=== PATIENT | male | born 1970 | race Caucasian/White ===

== ENCOUNTER 2017-02-23 04:22 | Emergency (ER) | payer OTHER ==
[2017-02-23 04:33] VITALS: BP 96/61
[2017-02-23] MEDS ORDERED: Metoclopramide IV* 5 MG/ML 2 ML VIAL IV ONE (04:50)
[2017-02-23] MEDS ORDERED: diPHENhydraMINE IV* 50 MG/ML 1 ml VIAL (BENADRYL) IV ONE (04:50)
[2017-02-23] MEDS ORDERED: NS 0.9% 1000 ML* 2,000 ML IV ONE (04:50)
[2017-02-23] MEDS ORDERED: Ketorolac INJ* 30 MG/ML 1 ML VIAL IV PUSH ONE (04:51)
[2017-02-23] MEDS ORDERED: Morphine INJ* 4 MG/ML 1 ML CARPUJECT IV ONE (05:57)
[2017-02-23] MEDS ORDERED: HYDROcodone/ACETAMIN 5-325 MG* 1 TAB PO ONE (06:28)
[2017-02-23] MEDS ORDERED: Ondansetron ODT TAB* 4 MG PO ONE (06:29)
--- NOTE | 2017-02-23 06:34 | ED ---
Addy Morton Benjamin, scribed for Hector Horowitz MD on 02/23/17 at 0452 . Headache - HPI Summary HPI Summary: 47yo male BIBA for CRUZ. Pt points his CRUZ primarily on the frontal area. His CRUZ is causing him N/V, and photophobia. Pt denies any fever/chills. Pt states that his CRUZ woke him up from sleep today around 0330 hour. - History Of Current Complaint Chief Complaint: EDHeadache Stated Complaint: HEADACHE Hx Obtained From: Patient Onset/Duration: Sudden Onset, Started hours ago - since 0330. Initially Headache Was: Moderate Currently Pain Is: Moderate Timing: Constant Character: Typical Headache Location of Headache: Frontal Aggravating Factor: Bright Lights Allevating Factors: Nothing Associated Signs And Symptoms: Nausea, Vomiting - Allergies/Home Medications Allergies/Adverse Reactions: Allergies Allergy/AdvReac Type Severity Reaction Status Date / Time Sumatriptan [From Imitrex] Allergy Severe Hives/Diff. Verified 02/23/17 04:25 Breathing/I tching Aspirin [ASA] Allergy Rash Verified 02/23/17 04:25 Oxycodone Allergy Unknown Verified 02/23/17 04:25 Reaction Details Prochlorperazine Allergy Rash Verified 02/23/17 04:25 [From Compazine] PMH/Surg Hx/FS Hx/Imm Hx Endocrine/Hematology History: Denies: Hx Anticoagulant Therapy, Hx Blood Disorders, Hx Blood Transfusions, Hx Bone Marrow Disease, Hx Diabetes, Hx Systemic Lupus Erythematosus, Hx Sickle Cell Disease, Hx Thyroid Disease, Hx Anemia, Hx Unexplained Bleeding, Other Endocrine/Hematological Disorders Cardiovascular History: Denies: Other Cardiovascular Problems/Disorders Respiratory History: Denies: Other Respiratory Problems/Disorders GI History: Denies: Other GI Disorders History: Denies: Other Problems/Disorders Musculoskeletal History: Reports: Hx Arthritis, Hx Back Problems, Hx Congenital Bone Abnormalities - scoliosis, Hx Orthopedic Injury, Hx Scoliosis Denies: Hx Bursitis, Hx Fibromyalgia, Hx Gout, Hx Osteoporosis, Hx Tendonitis , Other Musculoskeletal History Sensory History: Denies: Other Sensory Impairments Opthamlomology History: Denies: Other Sensory Impairments Neurological History: Reports: Hx Developmental Delay, Hx Headaches, Hx Migraine , Hx Nerve Disease Denies: Hx Dementia, Hx Seizures, Hx Spinal Cord Injury, Hx Transient Ischemic Attacks (TIA), Other Neuro Impairments/Disorders Psychiatric History: Reports: Hx Anxiety, Hx Attention Deficit Hyperactivity Disorder, Hx Depression, Hx Panic Disorder, Hx Post Traumatic Stress Disorder, Hx Inpatient Treatment, Hx Community Mental Health Tx, Hx Substance Abuse - R/O OPIATE DEPENDENCE Denies: Hx Eating Disorder, Hx Schizophrenia, Hx Bipolar Disorder, Hx Suicide Attempt, Hx of Violent Episodes Against Others, Other Psychiatric Issues /Disorders - Immunization History Date of Tetanus Vaccine: utd Date of Influenza Vaccine: utd Infectious Disease History: No Infectious Disease History: Denies: Hx Clostridium Difficile, Hx Hepatitis, Hx Human Immunodeficiency Virus (HIV), Hx Shingles, Hx Tuberculosis, Traveled Outside the [place] in Last 30 Days - Family History Known Family History: Positive: None - Social History Occupation: Unemployed Lives: Alone Alcohol Use: None Substance Use Type: Reports: None Substance Use Comment - Amount & Last Used: MORPHINE PO Smoking Status (MU): Heavy Every Day Tobacco Smoker Type: Cigarettes Amount Used/How Often: PPD Length of Time of Smoking/Using Tobacco: 10YRS Have You Smoked in the Last Year: Yes Review of Systems Constitutional: Negative Negative: Fever, Chills Positive: Photophobia ENT: Negative Cardiovascular: Negative Respiratory: Negative Positive: Vomiting, Nausea Genitourinary: Negative Positive: no symptoms reported Musculoskeletal: Negative Skin: Negative Positive: Headache Psychological: Normal All Other Systems Reviewed And Are Negative: Yes Physical Exam - Summary Physical Exam Summary: The patient is well-nourished in mild distress. Pt is actively vomiting. Photophobic. The skin is warm and dry and skin color reflects adequate perfusion. HEENT: The head is normocephalic and atraumatic. Couldn't evaluate pt's pupils due to pt being photophobic. The conjunctivae are clear and without drainage. Nares are patent and without drainage. Mouth reveals dry mucous membranes and the throat is without erythema and exudate. The external ears are intact. The ear canals are patent and without drainage. The tympanic membranes are intact. Neck is supple with full range of motion and non-tender. There are no carotid bruits. There is no neck vein distension. Respiratory: Chest is non-tender. Lungs are clear to auscultation and breath sounds are symmetrical and equal. Cardiovascular: Hear is regular rate and rhythm. There is no murmur or rub auscultated. There is no peripheral edema and pulses are symmetrical and equal. Abdomen: The abdomen is soft and non-tender. There are normal bowel sounds heard in all four quadrants and there is no organomegaly palpated. Musculoskeletal: There is no back pain noted. Extremities are non-tender with full range of motion. There is good capillary refill. There is no peripheral edema or calf tenderness elicited. Neurological: Patient is alert and oriented to person, place and time. The patient has symmetrical motor strength in all four extremities. Cranial nerves are grossly intact. Deep tendon reflexes are symmetrical and equal in all four extremities. No focal motor weakness in legs. Psychiatric: The patient has an appropriate affect and does not exhibit any anxiety or depression. Mild diters photo activeing V. couldnt eval pupils. No rhin dry omm. No focal motor weakness in legs. 3sec. Triage Information Reviewed: Yes Vital Signs On Initial Exam: Initial Vitals Temp Pulse Resp BP Pulse Ox 97.2 F 79 18 96/61 99 02/23/17 04:23 02/23/17 04:23 02/23/17 04:23 02/23/17 04:23 02/23/17 04:23 Vital Signs Reviewed: Yes - [place] Coma Scale Coma Scale Total: 15 Diagnostics - Vital Signs Vital Signs Temp Pulse Resp BP Pulse Ox 02/23/17 04:23 97.2 F 79 18 96/61 99 - Laboratory Lab Statement: Any lab studies that have been ordered have been reviewed, and results considered in the medical decision making process. Re-Evaluation - Re-Evaluation First Eval Re-Evaluation Time: 06:27 Change: Improved Comment: pt states that his pain is better now. Headache Course/Dx - Course Course Of Treatment: Reviewed pt's medication list and allergies. Blood pressure noted. - Diagnoses Differential Diagnosis/HQI/PQRI: Other - substance abuse Provider Diagnoses: Migraine Discharge - Discharge Plan Condition: Stable Disposition: HOME Patient Education Materials: Migraine Headache (ED) Referrals: Abdiaziz Silver MD [Primary Care Provider] - The documentation as recorded by the Addy victoria Benjamin accurately reflects the service I personally performed and the decisions made by me, Hector Horowitz MD.
== END 2017-02-23 06:55 | disposition home or self-care (01) ==
LOC: ED 04:22
DX: G43.909 Migraine, unspecified, not intractable, without status migrainosus (principal); R11.2 Nausea with vomiting, unspecified; Z88.6 Allergy status to analgesic agent; Z88.5 Allergy status to narcotic agent; Z88.8 Allergy status to other drugs, medicaments and biological substances; F17.210 Nicotine dependence, cigarettes, uncomplicated
CPT/HCPCS: 96361; 96374; 96375; 99283; A9270-GY; J1200; J1885; J2270; J2765

== ENCOUNTER 2018-06-04 09:03 | Observation (INO) | payer OTHER ==
[2018-06-04] MEDS ORDERED: Ondansetron INJ* 2 MG/ML VIAL IV ONE ×2 (09:13→12:32)
[2018-06-04] MEDS ORDERED: Pantoprazole IV* 40 MG IV ONE (09:13)
[2018-06-04] MEDS ORDERED: NS 0.9% 1000 ML* 1,000 ML IV ONE ×2 (09:13→11:28)
[2018-06-04 09:35] LABS: ABS Basophils 0.1 10^3/ul (0-0.2); ABS Eosinophils 0 10^3/ul (0-0.6); ABS Lymphocytes 1.9 10^3/ul (1.0-4.8); ABS Monocytes 0.9 10^3/ul (0-0.8); ABS Neutrophils 11.3 10^3/ul (1.5-7.7); ABS Nucleated RBC 0 10^3/ul; Eosinophil % 0 %; Hematocrit 45 % (42-52); Hemoglobin 14.7 g/dl (14.0-18.0); Lymphocyte % 13.5 %; Mean Corpuscular HGB Conc 33 g/dl (31-36); Mean Corpuscular Hemoglobin 32 pg (27-31); Mean Corpuscular Volume 97 fL (80-94); Mean Platelet Volume 6.7 fL (7.4-10.4); Nucleated Red Blood Cells % 0.1; Platelet Count 489 10^3/ul (150-450); Red Blood Count 4.67 10^6/ul (4.00-5.40); Red Cell Distribution Width 17 % (10.5-15); White Blood Count 14.2 10^3/ul (3.5-10.8)
[2018-06-04 09:41] LABS: INR 0.97 (0.77-1.02)
[2018-06-04 09:51] LABS: ALT 11 U/L (7-52); AST 11 U/L (13-39); Albumin 4.6 g/dL (3.2-5.2); Albumin/Globulin Ratio 1.8 (1-3); Alkaline Phosphatase 92 U/L (34-104); Amylase 33 U/L (29-103); BUN/Creatinine Ratio 22.8 (8-20); Blood Urea Nitrogen 23 mg/dL (6-24); C Reactive Protein 1.15 mg/L (<8.01); Calcium 9.6 mg/dL (8.6-10.3); Chloride 105 mmol/L (101-111); Creatine Kinase 53 U/L (10-223); EGFR Non-African American 79.5 (>60); Globulin 2.6 g/dL (2-4); Glucose 96 mg/dL (70-100); Potassium 3.7 mmol/L (3.5-5.0); Sodium 137 mmol/L (135-145); Total Protein 7.2 g/dL (6.4-8.9)
[2018-06-04 09:55] LABS: Anion Gap 21 mmol/L (2-11); CO2 Carbon Dioxide 11 mmol/L (22-32)
[2018-06-04 10:07] LABS: Alcohol < 10 mg/dL (<10)
[2018-06-04] MEDS ORDERED: PROCHLORPERAZINE INJ 5 MG/ML 2 ML VIAL IV ONE (10:40)
[2018-06-04 11:11] LABS: Urine Appearance Clear; Urine Bacteria Absent (Absent); Urine Bilirubin Negative (Negative); Urine Blood Negative (Negative); Urine Color Yellow; Urine Glucose Negative (Negative); Urine Ketones 2+ (Negative); Urine Nitrite Negative (Negative); Urine Protein 1+(30 mg/dL) (Negative); Urine Red Blood Cell Trace(0-2/hpf) (Absent); Urine Specific Gravity 1.038 (1.010-1.030); Urine Urobilinogen Negative (Negative); Urine White Blood Cell Trace(0-5/hpf) (Absent)
--- NOTE | 2018-06-04 11:24 | ED ---
Nausea/Vomiting/Diarrhea HPI - HPI Summary HPI Summary: Patient is a 48-year-old male with a history of chronic pain since to the ED with a 3 day history of worsening nausea, vomiting without diarrhea or constipation. He states the last by mouth intake was 4 days ago, however he has been able to sip water. He states he feels he ate something different 3-4 days ago which caused him to have food poisoning. He has never had anything like this before. He denies any food allergies. Denies any abdominal pain. Denies any urinary symptoms or back pain. States he is otherwise healthy. Take Topiramate for migraines. Denies other medications. Denies any drug or alcohol use. Denies any diabetic history. Family history of diabetes. Heavy smoker. - History of Current Complaint Chief Complaint: EDNauseaVomitDiarrh Stated Complaint: VOMITING Time Seen by Provider: 06/04/18 09:16 Hx Obtained From: Patient Onset/Duration: Sudden Onset Timing: Constant Severity Initially: Moderate Severity Currently: Moderate Pain Intensity: 0 Pain Scale Used: 0-10 Numeric Aggravating Factor(s): Nothing Alleviating Factor(s): Nothing Diarrhea Presence: No - Risk Factors Influenza Risk Factors: Negative - Allergies/Home Medications Allergies/Adverse Reactions: Allergies Allergy/AdvReac Type Severity Reaction Status Date / Time aspirin Allergy Rash Verified 06/04/18 09:14 oxycodone Allergy Unknown Verified 06/04/18 09:14 Reaction Details prochlorperazine Allergy Rash Verified 06/04/18 09:14 sumatriptan Allergy Hives/Diff. Verified 06/04/18 09:14 Breathing/I tching PMH/Surg Hx/FS Hx/Imm Hx Previously Healthy: Yes Endocrine/Hematology History: Denies: Hx Anticoagulant Therapy, Hx Blood Disorders, Hx Blood Transfusions, Hx Bone Marrow Disease, Hx Diabetes, Hx Systemic Lupus Erythematosus, Hx Sickle Cell Disease, Hx Thyroid Disease, Hx Anemia, Hx Unexplained Bleeding, Other Endocrine/Hematological Disorders Cardiovascular History: Denies: Other Cardiovascular Problems/Disorders Respiratory History: Denies: Other Respiratory Problems/Disorders GI History: Denies: Other GI Disorders History: Denies: Other Problems/Disorders Musculoskeletal History: Reports: Hx Arthritis, Hx Back Problems, Hx Congenital Bone Abnormalities - scoliosis, Hx Orthopedic Injury, Hx Scoliosis Denies: Hx Bursitis, Hx Fibromyalgia, Hx Gout, Hx Osteoporosis, Hx Tendonitis , Other Musculoskeletal History Sensory History: Denies: Other Sensory Impairments Opthamlomology History: Denies: Other Sensory Impairments Neurological History: Reports: Hx Developmental Delay, Hx Headaches, Hx Migraine , Hx Nerve Disease Denies: Hx Dementia, Hx Seizures, Hx Spinal Cord Injury, Hx Transient Ischemic Attacks (TIA), Other Neuro Impairments/Disorders Psychiatric History: Reports: Hx Anxiety, Hx Attention Deficit Hyperactivity Disorder, Hx Depression, Hx Panic Disorder, Hx Post Traumatic Stress Disorder, Hx Inpatient Treatment, Hx Community Mental Health Tx, Hx Substance Abuse - R/O OPIATE DEPENDENCE Denies: Hx Eating Disorder, Hx Schizophrenia, Hx Bipolar Disorder, Hx Suicide Attempt, Hx of Violent Episodes Against Others, Other Psychiatric Issues /Disorders - Immunization History Date of Tetanus Vaccine: utd Date of Influenza Vaccine: utd Hx Pertussis Vaccination: No Immunizations Up to Date: Yes Infectious Disease History: No Infectious Disease History: Denies: Hx Clostridium Difficile, Hx Hepatitis, Hx Human Immunodeficiency Virus (HIV), Hx Shingles, Hx Tuberculosis, Traveled Outside the [place] in Last 30 Days - Family History Known Family History: Positive: None - Social History Occupation: Unemployed Lives: Alone Alcohol Use: None Substance Use Type: Reports: None Substance Use Comment - Amount & Last Used: MORPHINE PO Hx Tobacco Use: Yes Smoking Status (MU): Light Every Day Tobacco Smoker Type: Cigarettes Amount Used/How Often: PPD Length of Time of Smoking/Using Tobacco: 10YRS Have You Smoked in the Last Year: Yes Review of Systems Constitutional: Negative Negative: Fever, Chills, Fatigue, Skin Diaphoresis Negative: Sore Throat, Ear Ache, Nasal Discharge Negative: Palpitations, Chest Pain Negative: Shortness Of Breath Positive: Vomiting, Nausea. Negative: Abdominal Pain Genitourinary: Negative Positive: no symptoms reported, see HPI Positive: Anxious All Other Systems Reviewed And Are Negative: Yes Physical Exam Triage Information Reviewed: Yes Vital Signs On Initial Exam: Initial Vitals Temp Pulse Resp BP Pulse Ox 97.8 F 122 20 142/93 98 06/04/18 09:07 06/04/18 09:07 06/04/18 09:07 06/04/18 09:07 06/04/18 09:07 Vital Signs Reviewed: Yes Appearance: Positive: Well-Appearing, Well-Nourished Skin: Positive: Warm, Skin Color Reflects Adequate Perfusion Head/Face: Positive: Normal Head/Face Inspection Eyes: Positive: EOMI, ROSALIO, Conjunctiva Clear Neck: Positive: Supple, No Lymphadenopathy Respiratory/Lung Sounds: Positive: Clear to Auscultation, Breath Sounds Present Cardiovascular: Positive: RRR, Pulses are Symmetrical in both Upper and Lower Extremities Abdomen Description: Positive: Nontender, Soft Neurological: Positive: Sensory/Motor Intact, Alert, Oriented to Person Place, Time, Speech Normal Psychiatric: Positive: Normal AVPU Assessment: Alert Diagnostics - Vital Signs Vital Signs Temp Pulse Resp BP Pulse Ox 06/04/18 10:39 121 113/82 98 06/04/18 10:09 108 134/88 99 06/04/18 10:00 114 99 06/04/18 09:39 110 139/91 98 06/04/18 09:10 122 142/93 98 06/04/18 09:09 129 124/105 98 06/04/18 09:08 119 98 06/04/18 09:07 97.8 F 122 20 142/93 98 - Laboratory Lab Results: Lab Results 06/04/18 06/04/18 06/04/18 Range/Units 09:13 09:18 09:18 WBC 14.2 H (3.5-10.8) 10^3/ul RBC 4.67 (4.00-5.40) 10^6/ul Hgb 14.7 (14.0-18.0) g/dl Hct 45 (42-52) % MCV 97 H (80-94) fL MCH 32 H (27-31) pg MCHC 33 (31-36) g/dl RDW 17 H (10.5-15) % Plt Count 489 H (150-450) 10^3/ul MPV 6.7 L (7.4-10.4) fL Neut % (Auto) 79.9 % Lymph % (Auto) 13.5 % [place] % (Auto) 6.2 % Eos % (Auto) 0 % Baso % (Auto) 0.4 % Absolute Neuts (auto) 11.3 H (1.5-7.7) 10^3/ul Absolute Lymphs (auto) 1.9 (1.0-4.8) 10^3/ul Absolute Monos (auto) 0.9 H (0-0.8) 10^3/ul Absolute Eos (auto) 0 (0-0.6) 10^3/ul Absolute Basos (auto) 0.1 (0-0.2) 10^3/ul Absolute Nucleated RBC 0 10^3/ul Nucleated RBC % 0.1 INR (Anticoag Therapy) (0.77-1.02) Sodium 137 (135-145) mmol/L Potassium 3.7 (3.5-5.0) mmol/L Chloride 105 (101-111) mmol/L Carbon Dioxide 11 L* (22-32) mmol/L Anion Gap 21 H (2-11) mmol/L BUN 23 (6-24) mg/dL Creatinine 1.01 (0.67-1.17) mg/dL Est GFR ( Amer) 96.2 (>60) Est GFR (Non-Af Amer) 79.5 (>60) BUN/Creatinine Ratio 22.8 H (8-20) Glucose 96 (70-100) mg/dL Lactic Acid (0.5-2.0) mmol/L Calcium 9.6 (8.6-10.3) mg/dL Magnesium 2.0 (1.9-2.7) mg/dL Total Bilirubin 0.40 (0.2-1.0) mg/dL AST 11 L (13-39) U/L ALT 11 (7-52) U/L Alkaline Phosphatase 92 (34-104) U/L Ammonia (16-53) mcmol/L Total Creatine Kinase 53 (10-223) U/L C-Reactive Protein 1.15 (<8.01) mg/L Total Protein 7.2 (6.4-8.9) g/dL Albumin 4.6 (3.2-5.2) g/dL Globulin 2.6 (2-4) g/dL Albumin/Globulin Ratio 1.8 (1-3) Amylase 33 (29-103) U/L Lipase 30 (11.0-82.0) U/L Urine Color Yellow Urine Appearance Clear Urine pH 6.0 (5-9) Ur Specific [place] 1.038 H (1.010-1.030) Urine Protein 1+(30 mg/dl) A (Negative) Urine Ketones 2+ A (Negative) Urine Blood Negative (Negative) Urine Nitrate Negative (Negative) Urine Bilirubin Negative (Negative) Urine Urobilinogen Negative (Negative) Ur Leukocyte Esterase Negative (Negative) Urine WBC (Auto) Trace(0-5/hpf) (Absent) Urine RBC (Auto) Trace(0-2/hpf) (Absent) Ur Squamous Epith Cells Present A (Absent) Urine Bacteria Absent (Absent) Hyaline Casts Present A (Absent) Urine Glucose Negative (Negative) Serum Alcohol < 10 (<10) mg/dL 06/04/18 06/04/18 06/04/18 Range/Units 09:18 09:18 09:18 WBC (3.5-10.8) 10^3/ul RBC (4.00-5.40) 10^6/ul Hgb (14.0-18.0) g/dl Hct (42-52) % MCV (80-94) fL MCH (27-31) pg MCHC (31-36) g/dl RDW (10.5-15) % Plt Count (150-450) 10^3/ul MPV (7.4-10.4) fL Neut % (Auto) % Lymph % (Auto) % [place] % (Auto) % Eos % (Auto) % Baso % (Auto) % Absolute Neuts (auto) (1.5-7.7) 10^3/ul Absolute Lymphs (auto) (1.0-4.8) 10^3/ul Absolute Monos (auto) (0-0.8) 10^3/ul Absolute Eos (auto) (0-0.6) 10^3/ul Absolute Basos (auto) (0-0.2) 10^3/ul Absolute Nucleated RBC 10^3/ul Nucleated RBC % INR (Anticoag Therapy) 0.97 (0.77-1.02) Sodium (135-145) mmol/L Potassium (3.5-5.0) mmol/L Chloride (101-111) mmol/L Carbon Dioxide (22-32) mmol/L Anion Gap (2-11) mmol/L BUN (6-24) mg/dL Creatinine (0.67-1.17) mg/dL Est GFR ( Amer) (>60) Est GFR (Non-Af Amer) (>60) BUN/Creatinine Ratio (8-20) Glucose (70-100) mg/dL Lactic Acid 1.5 (0.5-2.0) mmol/L Calcium (8.6-10.3) mg/dL Magnesium (1.9-2.7) mg/dL Total Bilirubin (0.2-1.0) mg/dL AST (13-39) U/L ALT (7-52) U/L Alkaline Phosphatase (34-104) U/L Ammonia 50 (16-53) mcmol/L Total Creatine Kinase (10-223) U/L C-Reactive Protein (<8.01) mg/L Total Protein (6.4-8.9) g/dL Albumin (3.2-5.2) g/dL Globulin (2-4) g/dL Albumin/Globulin Ratio (1-3) Amylase (29-103) U/L Lipase (11.0-82.0) U/L Urine Color Urine Appearance Urine pH (5-9) Ur Specific [place] (1.010-1.030) Urine Protein (Negative) Urine Ketones (Negative) Urine Blood (Negative) Urine Nitrate (Negative) Urine Bilirubin (Negative) Urine Urobilinogen (Negative) Ur Leukocyte Esterase (Negative) Urine WBC (Auto) (Absent) Urine RBC (Auto) (Absent) Ur Squamous Epith Cells (Absent) Urine Bacteria (Absent) Hyaline Casts (Absent) Urine Glucose (Negative) Serum Alcohol (<10) mg/dL Result Diagrams: 06/04/18 09:18 06/04/18 09:18 Lab Statement: Any lab studies that have been ordered have been reviewed, and results considered in the medical decision making process. Naus/Vom/Diarrhea Course/Dx - Course Course Of Treatment: On arrival, patient is given Zofran without good relief. Subsequently given Compazine. Fluids given and labs obtained. CO2 level low at 11. Appears to be in metabolic acidosis. ABG ordered which confirms.PH 7.25 , PCO2 20, PO2 117, bicarbonate 12. He is given 3 L of fluids total in the ED. Will repeat blood gas. Recommend hospitalization. Discussed this with the patient who is resistant to this idea, however I have explained he could continue to go into worsening acidosis. He is agreeable to stay. Discussed with Dr. Saldana at 12:55pm who agrees to see patient in the ED for possible admission. - Differential Dx/Diagnosis Provider Diagnosis: Metabolic acidosis, Nausea & vomiting - Physician Notification/Consults Discussed Case/Management/Disposition Of Patient With: Nessa Saldana - 12: 55pm Instructed by Provider To: Admit As Inpatient Discharge - Sign-Out/Discharge Documenting (check all that apply): Patient Departure - Discharge Plan Condition: Good Disposition: ADMITTED TO [facility] Referrals: Abdiaziz Silver MD [Primary Care Provider] - - Billing Disposition and Condition Condition: GOOD Disposition: Admitted to [facility]
[2018-06-04] MEDS: NS 0.9% 1000 ML* 2,000 ML IV ONE ×2 (12:48→13:35)
[2018-06-04] MEDS ORDERED: Ketorolac INJ* 30 MG/ML 1 ML VIAL IV PUSH ONE (13:17)
[2018-06-04] MEDS ORDERED: Ondansetron INJ* 2 MG/ML VIAL IV PRN (13:59)
[2018-06-04 14:01] LABS: Barbiturates Urine Screen None Detected (None Detect); Benzodiazepine Urine Screen None Detected (None Detect); Urine Cannabinoids Screen None Detected (None Detect)
[2018-06-04] MEDS ORDERED: Iohexol 300* (CONTRAST) 10 ML SDV IV ONE (14:25)
[2018-06-04 14:55] LABS: Potassium 4.7 mmol/L (3.5-5.0)
[2018-06-04] MEDS ORDERED: Lactated Ringers 1000 ML Bag* 1,000 ML IV SCH ×2 (15:00→23:00)
[2018-06-04] MEDS ORDERED: Metoclopramide IV* 5 MG/ML 2 ML VIAL IV ONE (15:15)
[2018-06-04] MEDS ORDERED: Metoclopramide IV* 5 MG/ML 2 ML VIAL ONE (15:17)
[2018-06-04] MEDS: Acetaminophen TAB* 325 MG PO PRN ×2 (17:53→23:09)
--- NOTE | 2018-06-04 19:28 | HP ---
CC: Dr. Silver * HISTORY AND PHYSICAL: DATE OF ADMISSION: 06/04/18 PROVIDER: Amberly Caba NP PRIMARY CARE PROVIDER: Dr. Silver. ATTENDING PHYSICIAN WHILE IN THE HOSPITAL: Dr. Nessa Saldana * (dictated by Amberly Caba NP). CHIEF COMPLAINT: Vomiting. HISTORY OF PRESENT ILLNESS: Mr. Blanchard is a 48-year-old male with a history of mild mental retardation, anxiety, history of suicidal attempts in the past, chronic back pain and migraines, who presented to the emergency room with complaints of intractable vomiting since Sunday. The patient states that he ate a sandwich from the [facility] on Sunday, and approximately 30 minutes after eating the sandwich he started vomiting. Reports that he has been unable to keep anything down including broth or clear liquids due to the vomiting. The patient reports that vomited several times a day. He denies any coffee-ground emesis or bright red blood in his vomit. He does report there is some mild streaking of blood with the vomit. He denies any fever or chills. Denies chest pain or edema. Denies any cough, hemoptysis, or shortness of breath. He does report nausea and vomiting and did experience some abdominal pain with the vomiting. He does complain of right lower quad abdominal pain with palpation. He denies any hematuria or dysuria. Denies any focal weakness or sensory loss. Denies any visual complaints, dysphagia. He does complain of chronic back pain. Denies any rashes, lesions, psychosis, or anxiety. Due to intractable vomiting and laboratory derangement, we were asked to see and evaluate him for admission. PAST MEDICAL HISTORY: Significant for: 1. Chronic back pain. 2. Mild mental retardation. 3. History of suicidal attempts. 4. Anxiety/depression. 5. Scoliosis. PAST SURGICAL HISTORY: None. HOME MEDICATIONS: 1. Topiramate 50 mg p.o. b.i.d. 2. Pain Relief PM 1 to 2 tablets at night for back pain. FAMILY HISTORY: Unknown any history of coronary artery disease. Does report father with a history of diabetes. Mother of unknown type of cancer. SOCIAL HISTORY: The patient smokes 3 to 4 cigarettes per day. Denies any alcohol or drug use. He lives alone. Surrogate decision maker in the event he is unable to make his own decisions is Carlo Palafox. Her phone number is [phone]. He wishes to be a DNR. REVIEW OF SYSTEMS: There has been no documented fever. Denies any chest pain or edema. Denies any cough, hemoptysis, or shortness of breath. He does report nausea and vomiting. Denies any diarrhea. He does report some right lower quad abdominal pain with palpation and mild abdominal pain with vomiting. No gross hematuria or dysuria, focal weakness or sensory loss. Denies any visual complaints, dysphagia. He does report chronic back pain. Denies any rashes, lesions, psychosis, or anxiety. He denies any suicidal or homicidal ideation. PHYSICAL EXAMINATION GENERAL: Mr. Blanchard is a 48-year-old male, who is pale-appearing, resting on the stretcher in the emergency room, appears to be in mild distress due to low back pain. VITAL SIGNS: Blood pressure 123/85, heart rate 113, respiratory rate 16, O2 saturation 98%, temperature was 99.1. HEENT: Head is atraumatic, normocephalic. Eyes: EOMs are intact. Sclerae anicteric and not pale. Oral mucosa is dry. The patient with poor dentition. NECK: Supple. LUNGS: Clear to auscultation bilaterally. No wheeze, rales, or rhonchi. CARDIAC: S1, S2. Regular rate and rhythm. No murmurs, rubs, or gallops. ABDOMEN: Soft. Tenderness with palpation to the right lower quadrant. Bowel sounds are present x4. EXTREMITIES: Pulses are +2 bilaterally. He is able to move all 4 extremities with 5/5 strength. NEUROLOGIC: He is awake, alert, and oriented x3. Speech is clear. Thought process is intact. No gross neuro deficits. SKIN: Intact. DIAGNOSTIC STUDIES/LAB DATA: WBCs are 14.2, RBCs 4.67, hemoglobin 14.7, hematocrit was 45, platelet count was 489. INR was 0.97. ABG: pH was 7.25, pCO2 was 20, pO2 117, HCO3 was 12, base excess was negative 16.3. Sodium 137, potassium 3.7, chloride 105, carbon dioxide was 11, anion gap was 21, BUN was 23 , creatinine 1.01, glucose was 96. Serum osmolality is 298. Lactic acid was 1.5, calcium 9.6. ASTs were 11, ALTs were 11, alkaline phosphatase was 92. Ammonia was 50. Total CK was 53. C-reactive protein was 1.15. Lipase was 30, amylase 33. Urine was yellow, clear, pH was 6, specific gravity 1.038, urine protein was 1+, ketones were 2+. Urine blood, nitrites, bilirubin, urobilinogen , leukocyte esterase were all negative. Urine wbc's were trace, rbc's were trace, urine squamous epithelial cells were present, urine bacteria was absent, hyaline casts were present, urine glucose was negative. Urine opiates, barbiturates, amphetamines, benzodiazepines, cocaine, cannabis and phencyclidine were all negative. Serum alcohol was also negative. CT abdomen and pelvis. Radiologist's impression: Cholelithiasis without pericholecystic inflammatory changes to suggest acute cholecystitis. ASSESSMENT AND PLAN: Mr. Blanchard is a 48-year-old male with a past medical history significant for chronic back pain, mild mental retardation, anxiety, prior history of suicidal attempts and migraines, who presented to the emergency room with intractable vomiting since Sunday. He was found to have metabolic acidosis on his lab work. We were asked to see and admit the patient. He will be admitted inpatient for: 1. Intractable vomiting. The patient has had vomiting since Sunday. He does have right lower quad abdominal pain. I will get a CT of the abdomen and pelvis. We will continue him on IV fluids for rehydration. I suspect that he has some mild dehydration due to the excessive vomiting. The patient does report that he ate at [facility] and approximately 30 minutes after eating a sandwich at the [facility], he started with vomiting. He denies any recent sick contacts. He denies any other symptoms. He does report some streaking of blood in the vomit. 2. Metabolic acidosis. It is unclear the cause of his metabolic acidosis at this time. He does have right lower quad abdominal pain. I will get a CT of the abdomen and pelvis to rule out any abdominal pathology for his metabolic acidosis. His lactic acid at this time is negative. He does have a white count of 14.2. We will continue to monitor his electrolytes. I will repeat electrolytes at [address] him on LR at 125 per hour and give Zofran as needed for nausea. 3. Right lower quad abdominal pain. I will do a CT of the abdomen and pelvis to rule out appendicitis or any other acute abdominal pathology as to the cause of his vomiting and right lower quad abdominal pain. 4. Chronic back pain. The patient takes [id number] Pain Relief PM. Continue him on Tylenol as needed for pain. 5. Migraines. The patient takes topiramate at home 50 mg p.o. b.i.d. I will hold this until he is able to take p.o. fluids. 6. FEN: He will be placed on a clear liquid diet and advance as tolerated. 7. Code status: The patient reports he would like to be a DNR. 8. DVT prophylaxis: I will encourage ambulation. 9. Disposition: The patient will be placed on observation. TIME SPENT: Time spent on this admission was 60 minutes, greater than half that time was spent [id number] with the patient obtaining my history and physical, the other half of the time was spent going over my plan of care and implementing my plan of care. I have discussed this with my attending Dr. Nessa Saldana, and she is in agreement with my plan. AMBERLY CABA, COMMERCIAL ENGINEER [id number]/[facility] #: [id number] TEETEE
[2018-06-04] MEDS ORDERED: Melatonin 3 MG TAB PO PRN (19:54)
[2018-06-04 20:50] LABS: Potassium 3.6 mmol/L (3.5-5.0)
[2018-06-04] MEDS ORDERED: NS 0.9% 1000 ML* 1,000 ML IV SCH (22:45)
[2018-06-04] MEDS ORDERED: diPHENhydraMINE PO* 25 MG PO PRN (22:57)
[2018-06-05] MEDS ORDERED: Ketorolac INJ* 15 MG/ML 1 ML VIAL IV PUSH ONE (00:54)
[2018-06-05] MEDS: Acetaminophen TAB* 325 MG PO PRN (04:59)
[2018-06-05] MEDS ORDERED: Ketorolac INJ* 15 MG/ML 1 ML VIAL IV PUSH PRN (06:00)
[2018-06-05 06:01] LABS: ABS Basophils 0.1 10^3/ul (0-0.2); ABS Eosinophils 0.1 10^3/ul (0-0.6); ABS Lymphocytes 2.6 10^3/ul (1.0-4.8); ABS Monocytes 1.3 10^3/ul (0-0.8); ABS Neutrophils 8.8 10^3/ul (1.5-7.7); ABS Nucleated RBC 0 10^3/ul; Eosinophil % 0.7 %; Hematocrit 34 % (42-52); Lymphocyte % 20.5 %; Mean Corpuscular HGB Conc 32 g/dl (31-36); Mean Corpuscular Hemoglobin 31 pg (27-31); Mean Corpuscular Volume 97 fL (80-94); Mean Platelet Volume 6.6 fL (7.4-10.4); Nucleated Red Blood Cells % 0; Platelet Count 368 10^3/ul (150-450); Red Blood Count 3.56 10^6/ul (4.00-5.40); Red Cell Distribution Width 16 % (10.5-15); White Blood Count 12.9 10^3/ul (3.5-10.8)
[2018-06-05 07:26] LABS: Calcium 8.5 mg/dL (8.6-10.3); Potassium 3.7 mmol/L (3.5-5.0)
[2018-06-05 07:32] LABS: BUN/Creatinine Ratio 16.3 (8-20); EGFR Non-African American 183.2 (>60); HDL Cholesterol 29.9 mg/dL
[2018-06-05 07:37] VITALS: BP 110/73
[2018-06-05] MEDS ORDERED: Topiramate TAB(*) 25 MG PO SCH (09:00)
--- NOTE | 2018-06-05 11:35 | DS ---
CC: Dr. Silver * DISCHARGE SUMMARY: DATE OF ADMISSION: 06/04/18 DATE OF DISCHARGE: 06/05/18 HOSPITAL COURSE: This 48-year-old man was admitted because of vomiting. He said about 30 minutes after buying a sandwich which started on 05/31/18, he started having vomiting. He continued to have vomiting several times a day until the morning of admission. After being admitted, he no longer had vomiting. He said he had 1 or 2 bowel movements per day. He did not have an abdominal pain. The rest of the history is detailed in the admission note. CT scan showed cholelithiasis without pericholecystic fluid or gallbladder wall thickening. The patient was treated symptomatically and given intravenous fluids. He received almost 7 L of intravenous fluids. His laboratory results improved significantly. His white blood count fell from 14.2 to 12.9, blood gas showed metabolic acidosis; however, by the morning of discharge, it improved significantly with anion gap falling from 21 to 15, CO2 faith from 11 to 14, potassium was 3.7. The patient's creatinine fell from 1.01 to 0.49. The patient said he felt quite well. He was hungry. He was drinking apple juice and water without any difficulty. He had no emesis for over 24 hours before discharge. He actually told the nurse he wanted to sign out against medical advice; however, I think after he eats a meal and drinks a little more fluid, he would be appropriate for discharge. FINAL DIAGNOSIS: Gastroenteritis versus staphylococcal food poisoning. DISCHARGE DIAGNOSES: 1. Mood disorder. 2. Tobacco use disorder. DISCHARGE MEDICATIONS: 1. Topiramate 50 mg b.i.d. CONDITION ON DISCHARGE: Improved. DISPOSITION: Discharged home. [id number]/[facility] #: [id number] [facility]
== END 2018-06-05 10:50 | disposition home or self-care (01) ==
LOC: ED 09:03 → INTOOBSV 13:59 → MED 13:59
PROVIDERS: ADMIT Hospitalist; ATTEND Internal Medicine
DX: K52.9 Noninfective gastroenteritis and colitis, unspecified (principal); F39 Unspecified mood [affective] disorder; F17.210 Nicotine dependence, cigarettes, uncomplicated; M54.9 Dorsalgia, unspecified; F70 Mild intellectual disabilities; F41.8 Other specified anxiety disorders; M41.9 Scoliosis, unspecified; R11.2 Nausea with vomiting, unspecified
CPT/HCPCS: 36415; 74177; 80048; 80051; 80053; 80061; 80307; 80320; 81003; 81015; 82140; 82150; 82550; 82803; 83605; 83690; 83735; 83930; 85025; 85610; 86140; 87040; 87086; 90471; 90686; 93005; 96361; 96374; 96375; 96376; 99284; A9270-GY; G0008; G0378; G0480; J0780; J1885; J2405; J2765; Q9967

== ENCOUNTER 2023-08-07 06:36 | Inpatient (IN) ==
[2023-08-07] MEDS: Metoclopramide 5 MG/ML VIAL (10 mg) IV ONE (07:06)
[2023-08-07] MEDS ORDERED: Dextrose 50% Syringe 50 ml 25 GM/50 ML SYRINGE ONE (07:08)
[2023-08-07] MEDS: Lactated Ringers 1000 ml BAG 1,000 ML IV ONE ×4 (07:10→16:09)
[2023-08-07] MEDS: Dextrose 50% Syringe 50 ml 25 GM/50 ML SYRINGE IV PUSH ONE (07:11)
[2023-08-07] MEDS: Glucose ORAL 15 GM TUBE PO ONE (07:18)
[2023-08-07 07:52] LABS: Hematocrit 38.3 % (38-53); Mean Corpuscular Hemoglobin 31.6 pg (27-33); Mean Corpuscular Hgb Conc 31.4 g/dL (31-36); Mean Corpuscular Volume 100.6 fL (80-97); Mean Platelet Volume 6.3 fL (7.5-11.2); Platelet Count 429 10^3/uL (150-450); Red Cell Distribution Width 17.3 % (12-17); White Blood Count 15.8 10^3/uL (3.6-10.2)
[2023-08-07 08:20] LABS: ABS Monocytes 0.5 10^3/uL (0.0-1.1); ABS Neutrophils 14.2 10^3/uL (1.5-7.6); ABS Nucleated RBC 0.02 10^3/ul; Anisocytosis 1+; Lymphocyte % 6.2 %; Macrocytosis 1+; Nucleated Red Blood Cells % 0.1 %/100WBC (0.0-0.8)
[2023-08-07 08:40] LABS: Albumin 3.9 g/dL (3.2-5.2); Albumin/Globulin Ratio 1.9 (1-3); C Reactive Protein 23.7 mg/L (<8.01); Calcium 8.2 mg/dL (8.6-10.3); Creatinine, Serum 0.76 mg/dL (0.67-1.17); Globulin 2.1 g/dL (2-4); Potassium 5.1 mmol/L (3.5-5.0); Total Bilirubin 0.3 mg/dL (0.2-1.0); eGFR CKD-EPI 108.8 (>60)
[2023-08-07 09:24] LABS: Venous Bicarbonate HCO3 9.8 mmol/L (24-28)
[2023-08-07] MEDS: Morphine 4 MG/ML VIAL (1 ml) IV ONE ×2 (10:27→14:07)
[2023-08-07 11:08] LABS: Urine Appearance Clear; Urine Bilirubin Negative (Negative); Urine Blood Negative (Negative); Urine Color Light-Yellow; Urine Glucose 4+ (>=1000 mg/dL) (Negative); Urine Ketones 2+ (Negative); Urine Nitrite Negative (Negative); Urine Protein Negative (Negative); Urine Urobilinogen Negative (Negative)
[2023-08-07] MEDS: Ondansetron 4 mg VIAL 2 MG/ML 2 ml VIAL IV ONE (11:09)
[2023-08-07] MEDS: Iohexol 300 (CONTRAST) 10 ML SDV IV ONE (11:21)
[2023-08-07] MEDS: Piperacillin/Tazobac 3.375 BAG 3.375 GM/100 ML BAG IV ONE (13:28)
[2023-08-07] MEDS: Dextrose 50% Syringe 50 ml 25 GM/50 ML SYRINGE IV PUSH PRN (14:07)
[2023-08-07 15:40] LABS: Phosphorus 2.5 mg/dL (2.5-5.0); Uric Acid 5.5 mg/dL (4.4-7.6)
[2023-08-07 16:50] LABS: PCO2 Arterial 20 mmHg (35-45); PO2 Arterial 107 mmHg (80-100)
[2023-08-07] MEDS: D5LR 1000 ml BAG 1,000 ML IV SCH (17:17)
[2023-08-07 17:43] LABS: Anion Gap 13 mmol/L (2-16); Blood Urea Nitrogen 11 mg/dL (6-24); CO2 Carbon Dioxide 13 mmol/L (22-32); Calcium 8.4 mg/dL (8.6-10.3); Chloride 112 mmol/L (101-111); Creatinine, Serum 0.73 mg/dL (0.67-1.17); Glucose 84 mg/dL (70-100); Potassium 4.2 mmol/L (3.5-5.0); Sodium 138 mmol/L (135-145); eGFR CKD-EPI 110.2 (>60)
[2023-08-07 17:50] LABS: Urine Appearance Clear; Urine Bilirubin Negative (Negative); Urine Blood 2+ (Negative); Urine Color Light-Yellow; Urine Glucose Trace (Negative); Urine Ketones 3+ (Negative); Urine Nitrite Negative (Negative); Urine Protein 1+ (>=30 mg/dL) (Negative); Urine Specific Gravity 1.029 (1.002-1.030); Urine Urobilinogen Negative (Negative)
[2023-08-07 17:55] LABS: Urine Potassium Concentration 28.6 mmol/L
[2023-08-07 17:59] LABS: Urine Bacteria Absent /HPF (Absent); Urine Red Blood Cell 3+(>10/hpf) /HPF (0-Trace); Urine White Blood Cell Trace(0-5/hpf) /HPF (0-Trace)
[2023-08-07 18:13] LABS: Urine Benzodiazepine Screen None Detected (None Detect); Urine Cannabinoids Screen None Detected (None Detect); Urine Opiates Screen Presumptive Positive (None Detect)
[2023-08-07 18:13] LABS: Insulin 5.9 mcIU/mL (2.0-16.0)
[2023-08-07] MEDS: Lactated Ringers 1000 ml BAG 1,000 ML IV SCH (18:22)
[2023-08-07 18:43] LABS: Alcohol, S < 13 mg/dL (<13)
[2023-08-07] MEDS: Enoxaparin 40 MG/0.4 ML SYR SUBCUT SCH (20:31)
[2023-08-07 21:24] LABS: Calcium 8.3 mg/dL (8.6-10.3); Creatinine, Serum 0.62 mg/dL (0.67-1.17); Potassium 3.6 mmol/L (3.5-5.0); eGFR CKD-EPI 115.7 (>60)
[2023-08-07 22:41] LABS: Urine Buprenorphine Screen None Detected (None Detect); Urine Fentanyl Screen None Detected (None Detect); Urine Hydrocodone Screen None Detected (None Detect)
[2023-08-08] MEDS: Morphine ORAL.SOLN 10 mg 2 mg/ml UDC 5 ml (10 mg) PO PRN (02:23)
[2023-08-08 05:29] LABS: ABS Lymphocytes 1.8 10^3/uL (1.0-4.8); ABS Monocytes 0.9 10^3/uL (0.0-1.1); ABS Neutrophils 7.1 10^3/uL (1.5-7.6); Eosinophil % 0.4 %; Hematocrit 30.7 % (38-53); Hemoglobin 10.3 g/dL (13.2-16.3); Lymphocyte % 18.6 %; Mean Corpuscular Hgb Conc 33.6 g/dL (31-36); Mean Corpuscular Volume 95.4 fL (80-97); Mean Platelet Volume 6.4 fL (7.5-11.2); Platelet Count 405 10^3/uL (150-450); Red Blood Count 3.21 10^6/uL (4.06-5.63); Red Cell Distribution Width 16.2 % (12-17); White Blood Count 9.9 10^3/uL (3.6-10.2)
[2023-08-08 05:45] LABS: Calcium 7.8 mg/dL (8.6-10.3); Creatinine, Serum 0.52 mg/dL (0.67-1.17); HDL Cholesterol 29.3 mg/dL; Magnesium 1.7 mg/dL (1.9-2.7); Phosphorus 1.3 mg/dL (2.5-5.0); Potassium 3.1 mmol/L (3.5-5.0)
[2023-08-08] MEDS: KCL 20 MEQ/100 ML IVPREMIX 20 MEQ/100 ML BAG IV ONE ×2 (09:01→22:00)
[2023-08-08] MEDS: Magnesium Sulfate 2 gm BAG 2 GM/50 ML BAG IVPB ONE (09:01)
[2023-08-08] MEDS: Potassium Chlor 20 meq TAB.ER PO ONE ×2 (09:03→21:59)
[2023-08-08] MEDS: Sodium Phosphate IV 30 MMOL in NS 0.9% 250 ml 250 ML IV ONE (09:04)
[2023-08-08] MEDS: Lactated Ringers 1000 ml BAG 1,000 ML IV SCH ×2 (09:05→11:30)
[2023-08-08] MEDS: Ondansetron ODT 4 mg TAB 4 MG TAB SL PRN (09:28)
[2023-08-08] MEDS: Magnesium Sulfate IV 1GM/100ML 1 GM/100 ML BAG IV ONE (10:15)
[2023-08-08 17:20] LABS: TSH Ultra Thyroid Stim Horm 2.07 mcIU/mL (0.34-5.60)
[2023-08-08 18:59] LABS: Calcium 7.3 mg/dL (8.6-10.3); Creatinine, Serum 0.37 mg/dL (0.67-1.17); Phosphorus 1.3 mg/dL (2.5-5.0); Potassium 3.3 mmol/L (3.5-5.0); eGFR CKD-EPI 135.2 (>60)
[2023-08-09 05:21] LABS: ABS Lymphocytes 1.8 10^3/uL (1.0-4.8); ABS Monocytes 0.9 10^3/uL (0.0-1.1); ABS Neutrophils 4.8 10^3/uL (1.5-7.6); ABS Nucleated RBC 0.01 10^3/ul; Eosinophil % 0.6 %; Hematocrit 28.1 % (38-53); Hemoglobin 9.8 g/dL (13.2-16.3); Lymphocyte % 23.6 %; Mean Corpuscular Hemoglobin 32.4 pg (27-33); Mean Corpuscular Hgb Conc 34.8 g/dL (31-36); Mean Corpuscular Volume 93.1 fL (80-97); Mean Platelet Volume 6.4 fL (7.5-11.2); Nucleated Red Blood Cells % 0.1 %/100WBC (0.0-0.8); Platelet Count 386 10^3/uL (150-450); Red Blood Count 3.02 10^6/uL (4.06-5.63); Red Cell Distribution Width 15.7 % (12-17); White Blood Count 7.6 10^3/uL (3.6-10.2)
[2023-08-09 05:56] LABS: Albumin/Globulin Ratio 1.6 (1-3); C Reactive Protein 16.07 mg/L (<8.01); Calcium 7.8 mg/dL (8.6-10.3); Creatinine, Serum 0.3 mg/dL (0.67-1.17); Globulin 1.9 g/dL (2-4); Magnesium 1.9 mg/dL (1.9-2.7); Phosphorus 1.2 mg/dL (2.5-5.0); Potassium 3.4 mmol/L (3.5-5.0); Total Bilirubin 0.5 mg/dL (0.2-1.0); Total Protein 4.9 g/dL (6.4-8.9); eGFR CKD-EPI 144.1 (>60)
[2023-08-09] MEDS: Potassium Phosphate IV 30 MMOL in NS 0.9% 250 ml 250 ML IVPB ONE (09:19)
[2023-08-09 16:06] LABS: Calcium 7.9 mg/dL (8.6-10.3); Creatinine, Serum 0.48 mg/dL (0.67-1.17); Phosphorus 2.3 mg/dL (2.5-5.0); Potassium 3.8 mmol/L (3.5-5.0)
[2023-08-09 19:28] LABS: Hepatitis B Surface Antigen Nonreactive (Nonreactive)
[2023-08-09 19:38] LABS: HIV 4th Generation Nonreactive (Nonreactive)
[2023-08-09 19:46] LABS: Hepatitis C Antibody Negative (Negative)
[2023-08-10 05:38] LABS: ABS Eosinophils 0.1 10^3/uL (0.0-0.5); ABS Lymphocytes 1.6 10^3/uL (1.0-4.8); ABS Monocytes 0.7 10^3/uL (0.0-1.1); ABS Neutrophils 5.6 10^3/uL (1.5-7.6); ABS Nucleated RBC 0.01 10^3/ul; Eosinophil % 0.6 %; Hematocrit 28.5 % (38-53); Hemoglobin 9.9 g/dL (13.2-16.3); Lymphocyte % 19.9 %; Mean Corpuscular Hemoglobin 32.4 pg (27-33); Mean Corpuscular Hgb Conc 34.6 g/dL (31-36); Mean Corpuscular Volume 93.7 fL (80-97); Mean Platelet Volume 6.6 fL (7.5-11.2); Nucleated Red Blood Cells % 0.2 %/100WBC (0.0-0.8); Platelet Count 386 10^3/uL (150-450); Red Blood Count 3.04 10^6/uL (4.06-5.63); Red Cell Distribution Width 15.9 % (12-17)
[2023-08-10 06:29] LABS: Anion Gap 9 mmol/L (2-16); Blood Urea Nitrogen 10 mg/dL (6-24); CO2 Carbon Dioxide 28 mmol/L (22-32); Calcium 8.2 mg/dL (8.6-10.3); Chloride 102 mmol/L (101-111); Creatinine, Serum < 0.30 mg/dL (0.67-1.17); Glucose 109 mg/dL (70-100); Lipase 523 U/L (11.0-82.0); Magnesium 1.9 mg/dL (1.9-2.7); Potassium 3.5 mmol/L (3.5-5.0); Sodium 139 mmol/L (135-145); eGFR CKD-EPI 144.1 (>60)
[2023-08-11 10:32] LABS: ABS Basophils 0.1 10^3/uL (0.0-0.1); ABS Lymphocytes 1.7 10^3/uL (1.0-4.8); ABS Monocytes 0.5 10^3/uL (0.0-1.1); ABS Neutrophils 5.7 10^3/uL (1.5-7.6); ABS Nucleated RBC 0.01 10^3/ul; Eosinophil % 0.5 %; Hematocrit 29.7 % (38-53); Lymphocyte % 21.1 %; Mean Corpuscular Hemoglobin 31.8 pg (27-33); Mean Corpuscular Hgb Conc 33.6 g/dL (31-36); Mean Corpuscular Volume 94.7 fL (80-97); Mean Platelet Volume 7.1 fL (7.5-11.2); Nucleated Red Blood Cells % 0.1 %/100WBC (0.0-0.8); Platelet Count 467 10^3/uL (150-450); Red Blood Count 3.14 10^6/uL (4.06-5.63); Red Cell Distribution Width 16.1 % (12-17)
[2023-08-11 11:00] LABS: Calcium 8.5 mg/dL (8.6-10.3); Creatinine, Serum 0.54 mg/dL (0.67-1.17); Phosphorus 3.1 mg/dL (2.5-5.0); Potassium 4.5 mmol/L (3.5-5.0); eGFR CKD-EPI 120.7 (>60)
[2023-08-12] MEDS: Influenza vaccine *QUAD* *2023-24* 0.5 ML SYRINGE IM ONE (08:36)
[2023-08-13 10:25] VITALS: BP 123/75
== END 2023-08-13 12:10 ==
LOC: ED 06:36 → EDHOLD 06:36 → MEDTELE 14:23 → SUATTDRO 08-09 18:15 → MED 08-12 21:00
PROVIDERS: ADMIT Internal Medicine; ATTEND Internal Medicine